=== PATIENT | male | born 1945 | race Caucasian/White ===

== ENCOUNTER 2019-05-31 08:23 | Outpatient (CLI) | payer MEDICARE, SELFPAY | END 2019-05-31 08:24 | disposition home or self-care (01) | LOC: RT 08:23 | PROVIDERS: Family Provider Electrodiagnostic Medicine; PCP Electrodiagnostic Medicine; Visit Provider Internal Medicine Cardiovascular Disease | DX: R06.02 Shortness of breath (principal) | CPT/HCPCS: 94010; 94060; 94726; 94729 ==

== ENCOUNTER 2019-07-09 06:46 | Outpatient (CLI) | payer MEDICARE, SELFPAY ==
--- NOTE | 2019-07-09 06:53 | USCV_ITS ---
Norman Guaman Age: 74 Gender: M : 1945 Exam Date: 07/09/2019 07:01 Ordering Phys: Kathi Grossman MD ([email or web address]) Technologist: Mehran North Exam Location: [facility] [place] Indication: CARDIO MYOPATHY BP: 120 / 70 HR: 74 Rhythm: Sinus Technical Quality: Fair MEASUREMENTS (Male / Female) Normal Values 2D ECHO LV Diastolic Diameter PLAX 3.6 cm 4.2 - 5.9 / 3.9 - 5.3 cm LV Systolic Diameter PLAX 2.1 cm IVS Diastolic Thickness 1.1 cm 0.6 - 1.0 / 0.6 - 0.9 cm IVS Systolic Thickness 1.2 cm LVPW Diastolic Thickness 1.0 cm 0.6 - 1.0 / 0.6 - 0.9 cm LVPW Systolic Thickness 1.2 cm LVOT Diameter 2.1 cm LV Ejection Fraction 2D Teich 72.0 % LV Ejection Fraction MOD 2C 37.9 % LV Ejection Fraction 2C AL 39.1 % LA Diameter 5.4 cm LA Width 5.1 cm LA Height 6.6 cm RA Width 2.7 cm RA Height 6.0 cm Aorta at Sinotubular Diameter 3.0 cm M-MODE LV Diastolic Diameter MM 6.3 cm 4.2 - 5.9 / 3.9 - 5.3 cm LV Systolic Diameter MM 4.7 cm LV Ejection Fraction MM Teich 49.2 % IVS Diastolic Thickness MM 1.1 cm 0.6 - 1.0 / 0.6 - 0.9 cm IVS Systolic Thickness MM 1.6 cm LVPW Diastolic Thickness MM 1.1 cm 0.6 - 1.0 / 0.6 - 0.9 cm LVPW Systolic Thickness MM 2.1 cm RV Diastolic Diameter MM 1.2 cm Aortic Annulus Diameter 3.7 cm LA Ao Ratio MM 1.5 MV E Point Septal Separation 1.7 cm DOPPLER AV Peak Velocity 171.0 cm/s LVOT Peak Velocity 102.0 cm/s AV Area Cont Eq vti 2.1 cm squared AV Area Cont Eq pk 2.0 cm squared MV Area PHT 5.0 cm squared Mitral E to A Ratio 2.7 MV E' Velocity 11.0 cm/s Mitral E to MV E' Ratio 10.5 Mitral E to LV E' Lateral Ratio 8.4 Mitral E to LV E' Septal Ratio 13.9 TR Peak Velocity 149.0 cm/s TR Peak Gradient 8.8 mmHg TV Peak E Velocity 119.0 cm/s Right Atrial Pressure 3.0 mmHg Pulmonary Artery Systolic Pressu 11.9 mmHg FINDINGS Left Ventricle Moderate left ventricular hypertrophy. Diffuse hypokinesia of the left ventricular with an ejection fraction of 39%. Normal LV size. Right Ventricle The right ventricle is normal in size and function. Right Atrium The right atrium is normal in size. Left Atrium Moderately increased left atrial size. Mitral Valve Thickened mitral valve. Mild mitral valve regurgitation. Aortic Valve Thickened aortic valve. Tricuspid Valve No gross abnormalities noted Pulmonic Valve Pulmonic valve not well visualized. Pericardium Normal pericardium without effusion. Aorta Normal ascending aorta dimension. CONCLUSIONS Moderate left ventricular hypertrophy. Diffuse hypokinesia of the left ventricular with an ejection fraction of 39%. Normal LV size. Moderately increased left atrial size. Thickened mitral valve. Mild mitral valve regurgitation. Thickened aortic valve There is no pericardial effusion. There are no intracardiac masses. Compared to the study from 11/11/2016, there is some worsening of the LV systolic function Dr Kathi Grossman MD FAC (Electronically Signed) Final Date: 09 July 2019 13:58 S
== END 2019-07-09 06:47 | disposition home or self-care (01) ==
LOC: US 06:48
PROVIDERS: Family Provider Electrodiagnostic Medicine; PCP Electrodiagnostic Medicine; Visit Provider Internal Medicine Cardiovascular Disease
DX: I43 Cardiomyopathy in diseases classified elsewhere (principal); I34.0 Nonrheumatic mitral (valve) insufficiency
CPT/HCPCS: 93306

== ENCOUNTER → 2019-12-03 07:37 | Outpatient (BNVA) | payer MEDICARE, SELFPAY | PROVIDERS: Family Provider Electrodiagnostic Medicine; PCP Electrodiagnostic Medicine; Visit Provider Urology | DX: N40.1 Benign prostatic hyperplasia with lower urinary tract symptoms (principal); N13.8 Other obstructive and reflux uropathy; N52.8 Other male erectile dysfunction; R97.20 Elevated prostate specific antigen [PSA] | CPT/HCPCS: 81001; 84153 ==

== ENCOUNTER → 2020-01-07 08:10 | Outpatient (BNVA) | payer MEDICARE, SELFPAY | PROVIDERS: Family Provider Electrodiagnostic Medicine; PCP Electrodiagnostic Medicine; Referring Provider Dermatology; Visit Provider Dermatology | DX: Z85.828 Personal history of other malignant neoplasm of skin (principal); D48.5 Neoplasm of uncertain behavior of skin; L91.8 Other hypertrophic disorders of the skin; L90.5 Scar conditions and fibrosis of skin; L57.0 Actinic keratosis; D48.9 Neoplasm of uncertain behavior, unspecified | CPT/HCPCS: 11102; 17000; 17003; 17110; 88304; 99203; 99204 ==

== ENCOUNTER 2020-05-11 12:05 | Outpatient (CLI) | payer MEDICARE, SELFPAY ==
[2020-05-11 12:17] VITALS: BP 128/80; PULSE 85; RESP 17; TEMP 37.5; O2SAT 96
[2020-05-11 12:18] VITALS: BMI 29.7
--- NOTE | 2020-05-11 13:03 | AMB.MCA ---
Patient Information Referred by: Rk Yip Symptom onset date: 05/04/20 COVID 19 common symptoms: positive cough, non-productive cough, fatigue, headache(s) and nasal congestion COVID 19 other sytmptoms: negative chest pressure, chest pain, pleuritic pain, requiring oxygen, requiring more oxygen, respiratory distress, cyanosis, lethargy, confusion, new neurological complaints or other concerning symptoms Severity: moderate Treatment prior to arrival: none [facility] COVID test results: No Data to Display outside results available, scanned Criteria/Plan Inclusion/Exclusion Criteria weight >/= 40kg, + direct test </= 10 days ago and symptom onset </= 10 days ago age >/= 65 not requiring hospitalization, not requiring oxygen (if not chronically on oxygen) and no increase oxygen requirement (if chronically on oxygen) Patient education patient/caregiver received/reviewed fact sheet, Emergency Use Authorization/unapproved drug status discussed with patient/caregiver, alternatives to this treatment discussed with patient/caregiver, risks and benefits of medication reviewed with patient/caregiver, patient/caregiver given opportunity for questions, which were answered and patient/caregiver consents to receiving Monoclonal Antibody Treatment Plan for treatment Meets criteria for Monoclonal Antibody infusion Ordering Monoclonal Antibody infusion for today
[2020-05-11 13:30] VITALS: BP 110/72; PULSE 70; RESP 16; TEMP 37.3; O2SAT 95
[2020-05-11 14:15] VITALS: BP 115/69; PULSE 78; RESP 17; TEMP 37.2; O2SAT 96
[2020-05-11 15:12] VITALS: BP 116/84; PULSE 109; RESP 17; TEMP 37.2; O2SAT 96
--- NOTE | 2020-05-13 14:28 | DCPLANNER ---
Addendum entered by Ingrid Bautista 05/22/20 15:14: staff training and development manager called to check on patient after getting the BAM infusion. staff training and development manager unable to speak with patient at this time. Original Note: staff training and development manager had message that patient received the BAM infusion. staff training and development manager called to check on patient after getting the infusion. Patient stated that he was fine, he did not have time to talk with cyanide case hardener.
== END 2020-05-11 15:18 | disposition home or self-care (01) ==
LOC: OPS 12:07
PROVIDERS: PCP Electrodiagnostic Medicine; Visit Provider Nurse Practitioner
DX: U07.1 COVID-19 (principal)
CPT/HCPCS: 96365

== ENCOUNTER → 2021-01-19 08:18 | Outpatient (BNVA) | payer MEDICARE, SELFPAY | PROVIDERS: PCP Family Medicine; Visit Provider Urology | DX: N40.1 Benign prostatic hyperplasia with lower urinary tract symptoms (principal); N13.8 Other obstructive and reflux uropathy; R97.20 Elevated prostate specific antigen [PSA] | CPT/HCPCS: 81003; 84153 ==

== ENCOUNTER → 2021-08-05 10:31 | Outpatient (BNVA) | payer MEDICARE, SELFPAY | PROVIDERS: PCP Family Medicine; Visit Provider Internal Medicine Cardiovascular Disease | DX: I10 Essential (primary) hypertension (principal); G47.33 Obstructive sleep apnea (adult) (pediatric); I48.11 Longstanding persistent atrial fibrillation; Z79.01 Long term (current) use of anticoagulants; I43 Cardiomyopathy in diseases classified elsewhere; R06.02 Shortness of breath | CPT/HCPCS: 99214 ==

== ENCOUNTER 2021-10-23 08:59 | Emergency (ER) | payer MEDICARE, SELFPAY ==
--- NOTE | 2021-10-23 10:00 | CTR_ITS ---
PROCEDURE INFORMATION: Exam: CT Abdomen And Pelvis Without Contrast Exam date and time: 10/23/2021 10:29 AM Age: 76 years old Clinical indication: Abdominal pain; Flank; Right; Additional info: Flank pain TECHNIQUE: Imaging protocol: Computed tomography of the abdomen and pelvis without contrast. Radiation optimization: All CT scans at this facility use at least one of these dose optimization techniques: automated exposure control; mA and/or kV adjustment per patient size (includes targeted exams where dose is matched to clinical indication); or iterative reconstruction. COMPARISON: CT abdomen pelvis w con* [id number] 10/03/2016 2:06 PM RADIATION DOSE METRICS: Total DLP (mGy-cm): 1802.65 FINDINGS: Lungs: Calcified granuloma in the left lower lobe. Diaphragm: Small hiatal hernia. Liver: Normal. No mass. Gallbladder and bile ducts: Normal. No calcified stones. No ductal dilation. Pancreas: Normal. No ductal dilation. Spleen: Normal. No splenomegaly. Adrenal glands: Right adrenal adenoma measures 2 cm. Low-density thickening of the left adrenal gland. Kidneys and ureters: Mild right hydroureteronephrosis secondary to two stones in the mid right ureter, measuring 2 mm (more proximally) and 4 mm (more distally). Tiny nonobstructing bilateral renal calculi. Stomach and bowel: Colonic diverticulosis without evidence of diverticulitis. No bowel obstruction. Appendix: No evidence of appendicitis. Intraperitoneal space: Unremarkable. No free air. No significant fluid collection. Vasculature: Mild burden of atherosclerotic plaque in the abdominal aorta and branch vessels. No aneurysm. Lymph nodes: Unremarkable. No enlarged lymph nodes. Urinary bladder: There are some linear calcific densities which appear to be either in the wall of the bladder or intraluminal adjacent to the wall. Some of these are in close proximity to the right ureteral orifice. These were not seen in 2017. Reproductive: Prostatomegaly. Bones/joints: Unremarkable. No acute fracture. Soft tissues: Unremarkable. CT/CT abdomen pelvis con [id number] IMPRESSION: 1. Mild right hydroureteronephrosis secondary to 2 stones in the mid right ureter measuring up to 4 mm. 2. There are some linear calcifications along the dependent aspect of the bladder, which may be intramural versus some layering stones. Some of these are in close proximity to the right ureteral orifice. Cystoscopy could further evaluate. COMMENTS: Consistent with the [employer]'s Incidental Findings Committee white paper (J Am Ana Radiol 2017): For any incidental adrenal lesion greater than or equal to 1 cm but less than or equal to 4 cm classified in this report as benign, likely benign, or containing fat (including classification as an adenoma or myelolipoma), no follow-up imaging is recommended per consensus recommendations based on imaging criteria. Further lab evaluation could be pursued if warranted based on clinical findings.
--- NOTE | 2021-10-23 10:00 | ECG_ITS ---
[facility] Test Date: 2021-10-23 Pat Name: Norman Guaman Department: Room: Gender: Male Graphic Design Intern: : 1945 Requested By: Aleksey Garza Order Number: [id number] Fernandez MD: Saul Vallejo M.D. Measurements Intervals [place] Rate: 79 P: MT: QRS: 28 QRSD: 106 T: 91 QT: 387 QTc: 445 Interpretive Statements ATRIAL FIBRILLATION NONSPECIFIC T-WAVE ABNORMALITY Compared to ECG 10/03/2016 12:57:40 Ventricular premature complex(es) no longer present Aberrant conduction of supraventricular beat(s) no longer present T-wave abnormality still present Electronically Signed On 10-23-2021 12:27:37 CDT by Saul Vallejo M.D. [id number]
--- NOTE | 2021-10-23 10:00 | ED_ITS ---
HPI - Abdominal Pain General: Chief Complaint: Abdominal Pain Stated Complaint: urinary pain Time Seen by Provider: 10/23/21 09:55 History of Present Illness: 76-year-old with history of kidney stones presents with right flank pain radiating down the groin. States this started this m orning. Denies any chest pain or shortness of breath. Does report 1 episode of nausea and nonbloody nonbilious emesis. Denies any diarrhea or constipation. Denies any dysuria or urethral discharge. Denies any anterior abdominal pain. Review of Systems Narrative: - CONSTITUTIONAL: Denies weight loss, fever and chills. - HEENT: Denies changes in vision and hearing. - RESPIRATORY: Denies SOB and cough. - CV: Denies palpitations and CP. - GI: As above - : As above. - MSK: Denies myalgia and joint pain. - SKIN: Denies rash and pruritus. - NEUROLOGICAL: Denies headache, weakness, numbness and syncope. - PSYCHIATRIC: Denies suicidal ideation PFSH ED PFSH: Medical History Abnormal TRUS (transrectal ultrasound), prostate Atrial fibrillation BPH w urinary obs/LUTS Cardiomyopathy as manifestation of underlying disease Chronic prostatitis Elevated PSA Erectile dysfunction History of nonmelanoma skin cancer Hypertension Sleep apnea SOB (shortness of breath) Surgical History H/O local excision of skin lesion CANCER REMOVED FROM FACE H/O prostate biopsy History of colonoscopy POLYPECTOMY Family History Father , AT AGE 77 Stroke CAD (coronary artery disease) Mother , AT AGE 96 Cancer OVARIAN Family/Other Diabetes Denies family history of Clotting disorder Dementia Chronic kidney disease (CKD) Suicide Anesthesia complication Bleeding disorder Lung disease Social History Smoking and tobacco status: former smoker Alcohol intake: never Marital status: Current occupational status: retired History of recent travel: No Physical Exam Narrative: EXAM NARRATIVE: - GENERAL: Alert and oriented x 3. No acute distress. Well-nourished. - EYES: EOMI. Anicteric. - HENT: Atraumatic, no C-spine tenderness. Moist mucous membranes. No scleral icterus. No cervical lymphadenopathy. - LUNGS: Clear to auscultation bilaterally. No accessory muscle use. Equal lung sounds bilaterally. No respiratory distress. - CARDIOVASCULAR: Regular rate and rhythm. No murmur. No JVD. - ABDOMEN: Soft, non-tender and non-distended. Right CVA tenderness, no rebound or guarding, negative Queen sign. No palpable masses. - EXTREMITIES: No edema. Non-tender. - SKIN: No rashes or lesions. Warm. - NEUROLOGIC: No meningismus or focal neurological deficits. CN II-XII grossly intact. - PSYCHIATRIC: Cooperative. Appropriate mood and affect. Course Vital Signs: Vital signs: Vital Signs Temperature 97.5 F L 10/23/21 10:04 Pulse Rate 70 10/23/21 12:02 Respiratory Rate 18 10/23/21 13:47 Blood Pressure 114/66 10/23/21 13:47 Pulse Oximetry 95 10/23/21 13:47 MDM - Abdominal Pain Medical Decision Making 76-year-old presents with right flank pain. He is hemodynamically stable afebrile nontoxic-appearing. CT scan concerning for kidney stone. There is also mild UTI on urinalysis however white count is within normal and he is not septic. At this time do not see any sign of septic kidney stone. Prescription for Cipro [place] Zofran and Flomax provided. EKG and troponin do not reveal any sign of acute ischemia or acute abnormality. Remainder of lab work u nremarkable. At this time I believe patient would be safe for discharge and outpatient follow-up. Return precautions provided. Plan was reviewed with the patient who expressed understanding. Questions answered. Patient will follow up with PCP. Patient discharged in stable condition. Lab Data : 10/23/21 11:15 10/23/21 11:15 Labs/Radiology: Radiology Impressions Abdomen/Pelvis CT 10/23/21 10:00 IMPRESSION: 1. Mild right hydroureteronephrosis secondary to 2 stones in the mid right ureter measuring up to 4 mm. 2. There are some linear calcifications along the dependent aspect of the bladder, which may be intramural versus some layering stones. Some of these are in close proximity to the right ureteral orifice. Cystoscopy could further evaluate. COMMENTS: Consistent with the [employer]'s Incidental Findings Committee white paper (J Am Ana Radiol 2017): For any incidental adrenal lesion greater than or equal to 1 cm but less than or equal to 4 cm classified in this report as benign, likely benign, or containing fat (including classification as an adenoma or myelolipoma), no follow-up imaging is recommended per consensus recommendations based on imaging criteria. Further lab evaluation could be pursued if warranted based on clinical findings. Laboratory Results WBC 10.6 10^3/uL (4.0-10.0) H 10/23/21 11:15 RBC 5.13 10^6/uL (4.1-5.3) 10/23/21 11:15 Hgb 16.1 g/dL (11.7-16.6) 10/23/21 11:15 Hct 45.8 % (42.0-52.0) 10/23/21 11:15 MCV 89.3 fl (80-94) 10/23/21 11:15 MCH 31.4 pg (28.0-34.0) 10/23/21 11:15 MCHC 35.2 g/dL (30.0-36.0) 10/23/21 11:15 RDW 12.0 % (12.1-15.1) L 10/23/21 11:15 Plt Count 139 10^3/cmm (130-400) 10/23/21 11:15 MPV 11.6 fL (7.4-10.4) H 10/23/21 11:15 Neut % (Auto) 89.8 % 10/23/21 11:15 Lymph % (Auto) 5.3 % 10/23/21 11:15 [place] % (Auto) 4.3 % 10/23/21 11:15 Eos % (Auto) 0.0 % 10/23/21 11:15 Baso % (Auto) 0.2 % 10/23/21 11:15 Neut # (Auto) 9.49 10^3/uL (1.8-7.7) H 10/23/21 11:15 Lymph # (Auto) 0.6 10^3/uL (0.8-4.8) L 10/23/21 11:15 [place] # (Auto) 0.5 10^3/uL (0.2-0.9) 10/23/21 11:15 Eos # (Auto) 0.0 10^3/uL (0.0-0.8) 10/23/21 11:15 Baso # (Auto) 0.0 10^3/uL (0.0-0.1) 10/23/21 11:15 Nucleated RBC % (auto) 0 % 10/23/21 11:15 Nucleated RBCs # 0.0 /100WBC 10/23/21 11:15 Sodium 140 mmol/L (136-145) 10/23/21 11:15 Potassium 4.6 mmol/L (3.5-5.1) 10/23/21 11:15 Chloride 105 mmol/L (98-107) 10/23/21 11:15 Carbon Dioxide 24 mmol/L (22-29) 10/23/21 11:15 Anion Gap 15.6 (5-19) 10/23/21 11:15 BUN 25 mg/dL (8-23) H 10/23/21 11:15 Creatinine 1.2 mg/dL (0.7-1.2) 10/23/21 11:15 GFR Calculation Not Reportable 10/23/21 11:15 Glucose 115 mg/dL (65-115) 10/23/21 11:15 Calculated Osmolality 295 mOsm/kg (285-295) 10/23/21 11:15 Calcium 9.2 mg/dL (8.5-10.5) 10/23/21 11:15 Total Bilirubin 0.6 mg/dL (0.15-1.2) 10/23/21 11:15 AST 23 U/L (0-40) 10/23/21 11:15 ALT 21 U/L (0-41) 10/23/21 11:15 Alkaline Phosphatase 50 IU/L (40-130) 10/23/21 11:15 Troponin T Baseline 13 ng/L (0-15) 10/23/21 11:15 Total Protein 7.3 g/dL (6.6-8.7) 10/23/21 11:15 Albumin 4.7 g/dL (3.5-5.2) 10/23/21 11:15 Globulin 2.6 g/dL (1.3-4.6) 10/23/21 11:15 Lipase 33 U/L (13-60) 10/23/21 11:15 Urine Color Brown (Yellow) 10/23/21 13:05 Urine Appearance Hazy (CLEAR) A 10/23/21 13:05 Urine pH 5 (5-7) 10/23/21 13:05 Ur Specific [place] 1.020 (1.005-1.030) 10/23/21 13:05 Urine Protein 1+ (Negative) H 10/23/21 13:05 Urine Glucose (UA) Norm (Normal) 10/23/21 13:05 Urine Ketones Negative (Negative) 10/23/21 13:05 Urine Blood 3+ (Negative) H 10/23/21 13:05 Urine Nitrate Negative (Negative) 10/23/21 13:05 Urine Bilirubin Neg (Negative) 10/23/21 13:05 Urine Urobilinogen Norm mg/dL (Negative) 10/23/21 13:05 Ur Leukocyte Esterase Trace (Negative) H 10/23/21 13:05 Urine RBC Too numerous to cnt /hpf (0-2) H 10/23/21 13:05 Urine WBC 10-15 /hpf (0-5) H 10/23/21 13:05 Ur Squamous Epith Cells 5-10 /hpf (0-5) H 10/23/21 13:05 Amorphous Sediment Not Reportable 10/23/21 13:05 Urine Bacteria 2+ /hpf (NONE) H 10/23/21 13:05 EKG Data EKG 1: Other EKG comments: A. fib, rate of 79, T wave inversion in aVL, no sign of acute ischemia or other acute abnormality. Discharge Plan Discharge Condition: Stable Prescriptions: No Action Eliquis 5 mg tablet 5 mg PO BID Qty: 180 2RF spironolactone 25 mg tablet 25 mg PO DAILY Qty: 90 3RF Protonix 20 mg Tablet,Delayed Release (Dr/Ec) 20 mg PO DAILY 0RF lisinopril 20 mg tablet 20 mg PO DAILY 0RF tamsulosin 0.4 mg capsule 0.4 mg PO DAILY 0RF metoprolol tartrate 25 mg tablet 25 mg PO BID 0RF Referrals: Marquez Valiente MD [Primary Care Provider] - Coding Level of Care Code ED Tumbler Operator for Chg Karen
[2021-10-23 10:04] VITALS: BP 159/79; PULSE 78; RESP 18; TEMP 36.4; O2SAT 99
[2021-10-23 11:30] VITALS: RESP 18
[2021-10-23] MEDS: ondansetron 2 mg/ML SDV 2 mL 4 MG IVP (11:30)
[2021-10-23] MEDS: morphine 4 mg/mL SDV 1 mL IVP (11:30)
[2021-10-23 11:46] VITALS: BP 138/69; RESP 18; O2SAT 97
[2021-10-23 11:54] LABS: Basophils % 0.2 %; Hematocrit 45.8 % (42.0-52.0); Hemoglobin 16.1 g/dL (11.7-16.6); Lymphocytes # 0.6 10^3/uL (0.8-4.8); Lymphocytes % 5.3 %; Mean Corpuscular HGB Conc 35.2 g/dL (30.0-36.0); Mean Corpuscular Hemoglobin 31.4 pg (28.0-34.0); Mean Corpuscular Volume 89.3 fl (80-94); Mean Platelet Volume 11.6 fL (7.4-10.4); Monocytes # 0.5 10^3/uL (0.2-0.9); Monocytes % 4.3 %; Neutrophils # 9.49 10^3/uL (1.8-7.7); Neutrophils % 89.8 %; Nucleated Red Blood Cells % 0 %; Platelet Count 139 10^3/cmm (130-400); Red Blood Count 5.13 10^6/uL (4.1-5.3); White Blood Count 10.6 10^3/uL (4.0-10.0)
[2021-10-23 12:02] VITALS: BP 125/80; PULSE 70; O2SAT 99
[2021-10-23 12:02] LABS: Alanine Aminotransferase 21 U/L (0-41); Albumin Level 4.7 g/dL (3.5-5.2); Alkaline Phosphatase 50 IU/L (40-130); Aspartate Amino Transferase 23 U/L (0-40); Blood Urea Nitrogen 25 mg/dL (8-23); Calcium 9.2 mg/dL (8.5-10.5); Carbon Dioxide 24 mmol/L (22-29); Chloride 105 mmol/L (98-107); Globulin 2.6 g/dL (1.3-4.6); Glucose 115 mg/dL (65-115); Lipase 33 U/L (13-60); Osmolality Calculated 295 mOsm/kg (285-295); Sodium 140 mmol/L (136-145); Total Bilirubin 0.6 mg/dL (0.15-1.2); Total Protein 7.3 g/dL (6.6-8.7)
[2021-10-23 12:03] LABS: Troponin(5th) Baseline 13 ng/L (0-15)
[2021-10-23 12:04] LABS: Anion Gap 15.6 (5-19); Potassium 4.6 mmol/L (3.5-5.1)
[2021-10-23] MEDS: sodium chloride 0.9% 500 ML 999 ML IV (13:46)
[2021-10-23 13:47] VITALS: BP 114/66; RESP 18; O2SAT 95
[2021-10-23 13:53] LABS: Add Urine Culture? Yes; Bacteria Urine 2+ /hpf; Bilirubin Urine Neg (Negative); Blood Urine 3+ (Negative); Glucose Urine UA Norm (Normal); Ketones Urine Negative (Negative); Leukocyte Esterase Urine Trace (Negative); Nitrate Urine Negative (Negative); Protein Urine 1+ (Negative); RBC Urine TOO NUMEROUS TO CNT /hpf (0-2); Urine Appearance Hazy (CLEAR); Urine Color Brown (Yellow); Urobilinogen Urine Norm (Negative); pH Urine 5 (5-7)
[2021-10-23 14:44] VITALS: BP 113/72; PULSE 73; RESP 16; O2SAT 98
== END 2021-10-23 14:46 | disposition home or self-care (01) ==
PROVIDERS: Emergency Provider Emergency Medicine; PCP Family Medicine
DX: R10.9 Unspecified abdominal pain (principal); Z79.01 Long term (current) use of anticoagulants; I10 Essential (primary) hypertension; Z87.891 Personal history of nicotine dependence
CPT/HCPCS: 74176; 80053; 81001; 83690; 84484; 85025; 87086; 93005; 96374; 96375; 99284; J2270; J2405; J7040

== ENCOUNTER 2021-10-26 02:07 | Emergency (ER) | payer MEDICARE, SELFPAY ==
[2021-10-26] MEDS: sodium chloride 0.9% 1,000 ML 999 ML IV (02:32)
[2021-10-26 02:38] VITALS: BP 167/98; PULSE 91; RESP 18; TEMP 36.8; O2SAT 97; BMI 30.5
[2021-10-26 02:40] LABS: Basophils % 0.3 %; Eosinophils % 0.1 %; Hematocrit 42.2 % (42.0-52.0); Hemoglobin 14.8 g/dL (11.7-16.6); Lymphocytes # 0.7 10^3/uL (0.8-4.8); Lymphocytes % 5.6 %; Mean Corpuscular HGB Conc 35.1 g/dL (30.0-36.0); Mean Corpuscular Hemoglobin 31.4 pg (28.0-34.0); Mean Corpuscular Volume 89.6 fl (80-94); Monocytes # 1.2 10^3/uL (0.2-0.9); Monocytes % 9.8 %; Neutrophils # 10.19 10^3/uL (1.8-7.7); Neutrophils % 83.8 %; Nucleated Red Blood Cells % 0 %; Platelet Count 129 10^3/cmm (130-400); Red Blood Count 4.71 10^6/uL (4.1-5.3); Red Cell Distribution Width 11.9 % (12.1-15.1); White Blood Count 12.2 10^3/uL (4.0-10.0)
[2021-10-26] MEDS: ondansetron 2 mg/ML SDV 2 mL 4 MG IVP (02:40)
[2021-10-26] MEDS: HYDROmorphone 1 mg/mL INJ 1 mL 0.5 MG IVP ×2 (02:40→03:24)
[2021-10-26 02:41] VITALS: BP 167/98; PULSE 79; RESP 16; O2SAT 92
--- NOTE | 2021-10-26 02:48 | CTR_ITS ---
PROCEDURE INFORMATION: Exam: CT Abdomen And Pelvis Without Contrast Exam date and time: 10/26/2021 3:05 AM Age: 76 years old Clinical indication: Abdominal pain; Flank; Right; Additional info: Flank pain TECHNIQUE: Imaging protocol: Computed tomography of the abdomen and pelvis without contrast. Radiation optimization: All CT scans at this facility use at least one of these dose optimization techniques: automated exposure control; mA and/or kV adjustment per patient size (includes targeted exams where dose is matched to clinical indication); or iterative reconstruction. COMPARISON: CT abdomen pelvis wo con [id number] 10/23/2021 10:29 AM RADIATION DOSE METRICS: Total DLP (mGy-cm): 2252.96 FINDINGS: Lungs: The lung bases are clear. No effusion Diaphragm: Small hiatal hernia. Liver: Normal. No mass. Gallbladder and bile ducts: No wall thickening, pericholecystic fluid or stones. Pancreas: Normal. No ductal dilation. Spleen: Normal. No splenomegaly. Adrenal glands: Normal. No mass. Kidneys and ureters: Multiple nonobstructing bilateral renal stones, largest measures 5 mm.. 3 stones are present in the right ureter, 1 at the ureterovesicular junction , 2 in the distal ureter. The largest stone is 4 mm. Stomach and bowel: Diverticulosis without diverticulitis. Mild amount of formed stool in the colon. Appendix: No evidence of appendicitis. Intraperitoneal space: Unremarkable. No free air. No significant fluid collection. Vasculature: Unremarkable. No abdominal aortic aneurysm. Lymph nodes: Unremarkable. No enlarged lymph nodes. Urinary bladder: Unremarkable as visualized. Reproductive: Moderate prostate hypertrophy. Bones/joints: Unremarkable. No acute fracture. Soft tissues: Unremarkable. CT/CT kidney stone [id number] IMPRESSION: 1. 3 stones are present in the right ureter, 1 at the ureterovesicular junction , 2 in the distal ureter. The largest stone is 4 mm. 2. Small hiatal hernia. 3. Multiple nonobstructing bilateral renal stones, largest measures 5 mm.. 4. Diverticulosis without diverticulitis. 5. Mild constipation.
--- NOTE | 2021-10-26 02:53 | W.ED.ABDPA2 ---
HPI - Abdominal Pain General: Chief Complaint: Abdominal Pain Stated Complaint: abd pain Time Seen by Provider: 10/26/21 02:11 Source: patient Mode of arrival: ambulatory Limitations: no limitations History of Present Illness: 76-year-old male states has been having right-sided flank pain over the last 3 days. He was seen here on the second diagnosed with kidney stone on the right side he states he has had worsening pain today radiating to his groin he rates an 8 out of 10. He states he has had some nausea vomiting is been taking his hydrocodone at times mainly taking ibuprofen. He denies any fevers. Associated Symptoms: Reports nausea and vomiting; Denies chills and fever(s) Review of Systems Const: Denies: fever(s), chills, body aches or change in appetite Eyes: Denies: blurry vision or eye discomfort ENMT: Denies: throat pain or dental pain Card: Denies: chest pain Resp: Denies: dyspnea GI: Reports: nausea and vomiting : Reports: flank pain Musc: Denies: neck pain or back pain Skin/Breast: Denies: rash Neuro: Denies: headache(s) Psych: Denies: depression Domo/Lymph: Denies: easy bruising All/Imm: Denies: urticaria PFSH ED PFSH: Medical History (Updated 10/26/21 @ 03:37 by Genesis Shepard MD) Abnormal TRUS (transrectal ultrasound), prostate Atrial fibrillation BPH w urinary obs/LUTS Cardiomyopathy as manifestation of underlying disease Chronic prostatitis Elevated PSA Erectile dysfunction History of nonmelanoma skin cancer Hypertension Sleep apnea SOB (shortness of breath) Surgical History H/O local excision of skin lesion CANCER REMOVED FROM FACE H/O prostate biopsy History of colonoscopy POLYPECTOMY Family History Father , AT AGE 77 Stroke CAD (coronary artery disease) Mother , AT AGE 96 Cancer OVARIAN Family/Other Diabetes Denies family history of Clotting disorder Dementia Chronic kidney disease (CKD) Suicide Anesthesia complication Bleeding disorder Lung disease Social History Smoking and tobacco status: former smoker Alcohol intake: never Marital status: Current occupational status: retired History of recent travel: No Physical Exam Const: COMMON NORMALS: no acute distress, patient oriented x3 and healthy appearing HENMT: COMMON NORMALS: normocephalic and atraumatic HEAD & SCALP: normocephalic and atraumatic Eye: COMMON NORMALS: Equal, round and reactive pupils present and EOMs intact bilaterally PUPIL: Yes Equal, round and reactive pupils present Neck/C-Spine: COMMON NORMALS: full ROM and supple Chest: COMMONS NORMALS: normal inspection of the chest and normal palpation of entire chest wall Resp: COMMON NORMALS: normal respiratory effort, No retractions, No use of accessory muscles and clear to auscultation bilaterally AUSCULTATION: clear to auscultation bilaterally Cardio: COMMON NORMALS: regular rate, regular rhythm and No murmurs present (Cardio) RATE: regular rate RHYTHM: regular rhythm GI: COMMON NORMALS: Normal to inspection, nondistended, normoactive bowel sounds present, Soft to palpation, non-tender and no masses PALPATION: Yes Soft to palpation Extremity: COMMON NORMALS: normal to inspection and full ROM Neuro: COMMON NORMALS: patient oriented x3, moves all extremities and no focal motor deficits Psych: COMMON NORMALS: mental status grossly normal, Normal thought process present and cooperative THOUGHT PROCESS: Normal thought process present Skin: COMMON NORMALS: no rashes or lesions noted and no wounds GENERAL SKIN EXAM: no rashes or lesions noted Course Vital Signs: Vital signs: Vital Signs Temperature 98.2 F 10/26/21 02:38 Pulse Rate 79 10/26/21 02:41 Respiratory Rate 16 10/26/21 02:41 Blood Pressure 167/98 10/26/21 02:41 Pulse Oximetry 92 10/26/21 02:41 MDM - Abdominal Pain Medical Decision Making Patient presents with a kidney stone actually has 3 they are moving in her much distal than they were 2 days ago. His pain here is improved he has no signs of infection he is stable for discharge we will get him follow-up with Dr. Worley. Lab Data : 10/26/21 02:34 10/26/21 02:34 Labs/Radiology: Radiology Impressions Abdomen/Pelvis CT 10/26/21 02:48 IMPRESSION: 1. 3 stones are present in the right ureter, 1 at the ureterovesicular junction , 2 in the distal ureter. The largest stone is 4 mm. 2. Small hiatal hernia. 3. Multiple nonobstructing bilateral renal stones, largest measures 5 mm.. 4. Diverticulosis without diverticulitis. 5. Mild constipation. Laboratory Results WBC 12.2 10^3/uL (4.0-10.0) H 10/26/21 02:34 RBC 4.71 10^6/uL (4.1-5.3) 10/26/21 02:34 Hgb 14.8 g/dL (11.7-16.6) 10/26/21 02:34 Hct 42.2 % (42.0-52.0) 10/26/21 02:34 MCV 89.6 fl (80-94) 10/26/21 02:34 MCH 31.4 pg (28.0-34.0) 10/26/21 02:34 MCHC 35.1 g/dL (30.0-36.0) 10/26/21 02:34 RDW 11.9 % (12.1-15.1) L 10/26/21 02:34 Plt Count 129 10^3/cmm (130-400) L 10/26/21 02:34 MPV 11.0 fL (7.4-10.4) H 10/26/21 02:34 Neut % (Auto) 83.8 % 10/26/21 02:34 Lymph % (Auto) 5.6 % 10/26/21 02:34 [place] % (Auto) 9.8 % 10/26/21 02:34 Eos % (Auto) 0.1 % 10/26/21 02:34 Baso % (Auto) 0.3 % 10/26/21 02:34 Neut # (Auto) 10.19 10^3/uL (1.8-7.7) H 10/26/21 02:34 Lymph # (Auto) 0.7 10^3/uL (0.8-4.8) L 10/26/21 02:34 [place] # (Auto) 1.2 10^3/uL (0.2-0.9) H 10/26/21 02:34 Eos # (Auto) 0.0 10^3/uL (0.0-0.8) 10/26/21 02:34 Baso # (Auto) 0.0 10^3/uL (0.0-0.1) 10/26/21 02:34 Nucleated RBC % (auto) 0 % 10/26/21 02:34 Nucleated RBCs # 0.0 /100WBC 10/26/21 02:34 Sodium 139 mmol/L (136-145) 10/26/21 02:34 Potassium 4.4 mmol/L (3.5-5.1) 10/26/21 02:34 Chloride 103 mmol/L (98-107) 10/26/21 02:34 Carbon Dioxide 23 mmol/L (22-29) 10/26/21 02:34 Anion Gap 17.4 (5-19) 10/26/21 02:34 BUN 24 mg/dL (8-23) H 10/26/21 02:34 Creatinine 1.3 mg/dL (0.7-1.2) H 10/26/21 02:34 GFR Calculation Not Reportable 10/26/21 02:34 Glucose 125 mg/dL (65-115) H 10/26/21 02:34 Calculated Osmolality 294 mOsm/kg (285-295) 10/26/21 02:34 Calcium 9.2 mg/dL (8.5-10.5) 10/26/21 02:34 Total Bilirubin 1.1 mg/dL (0.15-1.2) 10/26/21 02:34 AST 18 U/L (0-40) 10/26/21 02:34 ALT 15 U/L (0-41) 10/26/21 02:34 Alkaline Phosphatase 47 IU/L (40-130) 10/26/21 02:34 Total Protein 6.7 g/dL (6.6-8.7) 10/26/21 02:34 Albumin 4.3 g/dL (3.5-5.2) 10/26/21 02:34 Globulin 2.4 g/dL (1.3-4.6) 10/26/21 02:34 Lipase 23 U/L (13-60) 10/26/21 02:34 Urine Color Yellow (Yellow) 10/26/21 03:10 Urine Appearance Turbid (CLEAR) 10/26/21 03:10 Urine pH 5 (5-7) 10/26/21 03:10 Ur Specific [place] 1.020 (1.005-1.030) 10/26/21 03:10 Urine Protein Neg (Negative) 10/26/21 03:10 Urine Glucose (UA) Norm (Normal) 10/26/21 03:10 Urine Ketones Negative (Negative) 10/26/21 03:10 Urine Blood 3+ (Negative) H 10/26/21 03:10 Urine Nitrate Negative (Negative) 10/26/21 03:10 Urine Bilirubin Neg (Negative) 10/26/21 03:10 Urine Urobilinogen Norm mg/dL (Negative) 10/26/21 03:10 Ur Leukocyte Esterase Negative (Negative) 10/26/21 03:10 Urine RBC 5-10 /hpf (0-2) H 10/26/21 03:10 Urine WBC 0-4 /hpf (0-5) H 10/26/21 03:10 Ur Squamous Epith Cells 0-4 /hpf (0-5) H 10/26/21 03:10 Amorphous Sediment 1+ /hpf 10/26/21 03:10 Urine Bacteria Trace /hpf (NONE) 10/26/21 03:10 Urine Mucus Trace /hpf 10/26/21 03:10 Discharge Plan Discharge Patient Disposition: Home Clinical Impression: Kidney stone on right side Condition: Stable Prescriptions: New hydrocodone-acetaminophen 5-325 mg tablet 1 tab PO Q6H PRN (Reason: pain) Qty: 14 0RF ondansetron 4 mg tablet,disintegrating 4 mg PO Q6H PRN (Reason: nausea and vomiting) Qty: 14 0RF No Action Eliquis 5 mg tablet 5 mg PO BID Qty: 180 2RF spironolactone 25 mg tablet 25 mg PO DAILY Qty: 90 3RF Protonix 20 mg Tablet,Delayed Release (Dr/Ec) 20 mg PO DAILY 0RF lisinopril 20 mg tablet 20 mg PO DAILY 0RF tamsulosin 0.4 mg capsule 0.4 mg PO DAILY 0RF metoprolol tartrate 25 mg tablet 25 mg PO BID 0RF ciprofloxacin HCl 500 mg tablet 500 mg PO Q8H 7 Days Qty: 21 0RF Discharge Orders: Discharge ED (Routine); Ordered 10/26/21 Ordered By: Genesis Shepard Referrals: Marquez Valiente MD [Primary Care Provider] - Bharat Worley MD [Physician] - 1-3 days Discharge Diet: Advance as tolerated Discharge Activity: Resume usual activity Patient Instructions: Kidney Stones (ED), Opioid Safety Coding Level of Care Code ED Pet Adoption Counselor for Chg Fwd Exam Comprehensive
[2021-10-26 03:22] LABS: Alanine Aminotransferase 15 U/L (0-41); Albumin Level 4.3 g/dL (3.5-5.2); Alkaline Phosphatase 47 IU/L (40-130); Anion Gap 17.4 (5-19); Aspartate Amino Transferase 18 U/L (0-40); Blood Urea Nitrogen 24 mg/dL (8-23); Calcium 9.2 mg/dL (8.5-10.5); Carbon Dioxide 23 mmol/L (22-29); Chloride 103 mmol/L (98-107); Globulin 2.4 g/dL (1.3-4.6); Glucose 125 mg/dL (65-115); Lipase 23 U/L (13-60); Osmolality Calculated 294 mOsm/kg (285-295); Potassium 4.4 mmol/L (3.5-5.1); Sodium 139 mmol/L (136-145); Total Bilirubin 1.1 mg/dL (0.15-1.2); Total Protein 6.7 g/dL (6.6-8.7)
[2021-10-26 03:33] LABS: Add Urine Microscopic? YES; Amorphous Sediment Urine 1+ /hpf; Bacteria Urine TRACE /hpf; Bilirubin Urine Neg (Negative); Blood Urine 3+ (Negative); Glucose Urine UA Norm (Normal); Ketones Urine Negative (Negative); Leukocyte Esterase Urine Negative (Negative); Nitrate Urine Negative (Negative); Protein Urine Neg (Negative); Squamous Epithelial Cell Urine 0-4 /hpf (0-5); Urine Appearance Turbid (CLEAR); Urine Color Yellow (Yellow); Urobilinogen Urine Norm (Negative); WBC Urine 0-4 /hpf (0-5); pH Urine 5 (5-7)
[2021-10-26 03:34] LABS: Add Urine Culture? No; Mucus Urine TRACE /hpf
[2021-10-26] MEDS: ketorolac 30 mg/mL INJ 10 MG IVP (03:43)
[2021-10-26 04:11] VITALS: BP 122/66; PULSE 76; RESP 16; O2SAT 94
[2021-10-26 04:14] VITALS: BP 122/66; PULSE 76; RESP 16; O2SAT 94
--- NOTE | 2021-10-26 07:32 | DCPLANNER ---
Addendum entered by Ingrid Bautista 11/15/21 13:58: Patient had a follow up appointment scheduled for 11.04.[address] Worley - patient did attend appointment. Original Note: discovery manager had message to schedule a follow up appointment for patient with urology. discovery manager sent patients information to the front office staff at urology. Patients information will be printed and reviewed. Clinic will call patient with appointment information.
== END 2021-10-26 04:16 | disposition home or self-care (01) ==
PROVIDERS: Emergency Provider Emergency Medicine; PCP Family Medicine
DX: N20.0 Calculus of kidney (principal); R11.2 Nausea with vomiting, unspecified
CPT/HCPCS: 74176; 80053; 81001; 83690; 85025; 96374; 96375; 96376; 99284; J1170; J1885; J2405; J7030

== ENCOUNTER 2021-10-27 11:52 | Emergency (ER) | payer MEDICARE, SELFPAY ==
[2021-10-27] VITALS (38 sets, daily range): BP systolic 142–152; BP diastolic 77–81; PULSE 74–97; RESP 2–21; TEMP 36.1–36.8; O2SAT 91–99; BMI 29.7
--- NOTE | 2021-10-27 12:53 | ED_ITS ---
HPI - Male Genitourinary General: Chief complaint: Urogenital-Male Stated complaint: back pain, abd pain, can't urinate Time Seen by Provider: 10/27/21 12:35 Source: patient Mode of arrival: ambulatory Limitations: no limitations History of Present Illness: Patient is a nice 76-year-old male who presents to ED today with a complaint of acute urinary retention. Patient was initially seen at our facility on 10/23 and diagnosed with right ureter stones as well as a UTI. He was placed on antibiotics, pain/nausea meds, and flomax and discharged home. Patient was subsequently seen 2 days later for right flank and abdominal pains. CT scan showed 3 ureter stones measuring 2 to 4 mm. Patient's urine c ulture from his initial visit was negative and thus he was instructed to DC antibiotics. He states yesterday evening he began having trouble urinating but states he could dribble small amounts . He does have a history of BPH. He states overnight he has become increasingly uncomfortable and is now complaining of abdominal distention significant discomfort. He is still able to void very small amounts (a few mLs at a time). He has not noticed any hematuria. MD Complaint: other (urinary retention, ureter stones) Onset (ago): hour(s) Duration: constant Severity: severe Severity scale (1-10): 10 Exacerbating factors: none Associated symptoms: Deny hematuria, nausea or vomiting Review of Systems Const: Denies: fever(s), chills, body aches, fatigue or malaise Card: Denies: chest pain Resp: Denies: dyspnea GI: Reports: abdominal pain; Denies: nausea, vomiting or diarrhea : Reports: difficulty urinating and other (urinary retention); Denies: flank pain, hematuria, genital pain or testicular pain Musc: Denies: back pain Skin/Breast: Denies: rash Neuro: Denies: headache(s) PFS ED PFSH: Medical History (Updated 10/27/21 @ 16:51 by BERHANE Herron) Abnormal TRUS (transrectal ultrasound), prostate Atrial fibrillation BPH w urinary obs/LUTS Cardiomyopathy as manifestation of underlying disease Chronic prostatitis Elevated PSA Erectile dysfunction History of nonmelanoma skin cancer Hypertension Sleep apnea SOB (shortness of breath) Surgical History H/O local excision of skin lesion CANCER REMOVED FROM FACE H/O prostate biopsy History of colonoscopy POLYPECTOMY Family History Father , AT AGE 77 Stroke CAD (coronary artery disease) Mother , AT AGE 96 Cancer OVARIAN Family/Other Diabetes Denies family history of Clotting disorder Dementia Chronic kidney disease (CKD) Suicide Anesthesia complication Bleeding disorder Lung disease Social History Smoking and tobacco status: former smoker Alcohol intake: never Marital status: Current occupational status: retired History of recent travel: No Physical Exam Const: COMMON NORMALS: average body habitus, patient oriented x3, no limitations, healthy appearing, alert and well nourished GENERAL APPEARANCE: cooperative and in distress (appears very uncomfortable at this time) HENMT: COMMON NORMALS: normocephalic and atraumatic HEAD & SCALP: normal to inspection, normocephalic and atraumatic Resp: COMMON NORMALS: normal respiratory effort and clear to auscultation bilaterally AUSCULTATION: clear to auscultation bilaterally Cardio: COMMON NORMALS: regular rate and regular rhythm RATE: regular rate RHYTHM: regular rhythm GI: COMMON NORMALS: No hepatosplenomegaly present INSPECTION: Yes other (suprapubic distention) AUSCULTATION: Yes normoactive bowel sounds PALPATION: Yes No hepatosplenomegaly present and Yes Other GI palpation findings present (distended bladder) : COMMON NORMALS: Yes no CVA tenderness BLADDER/KIDNEY EXAM: Yes no CVA tenderness Back/Pelvis: COMMON NORMALS: no CVA tenderness Extremity: GENERAL: Yes normal exam except as noted Neuro: MARK COMA SCALE: document GCS findings Mark coma scale eye opening: Spontaneous Mark coma scale verbal response: Orientated Mark coma scale motor response: Obey commands Mark coma scale total score: 15 COMMON NORMALS: patient oriented x3, moves all extremities, no focal motor deficits and no sensory deficits noted SENSORIUM/ORIENTATION: Yes alert Skin: COMMON NORMALS: no rashes or lesions noted GENERAL SKIN EXAM: no rashes or lesions noted Course ED course: Starkey placed immediately after my examination and over 1000ml drained. Patient re-assessed and feels significantly better. Consultations: Consultation #1: Dr. Worley-will see patient in office tomorrow Consultation #2: Dr. Garza spoke to Dr. Grossman who stated EKGs were consistent with a rate dependent bundle block and there is no need for admission for this. Vital Signs: Vital signs: Vital Signs Temperature 96.9 F L 10/27/21 16:50 Pulse Rate 75 10/27/21 16:50 Respiratory Rate 18 10/27/21 16:50 Blood Pressure 142/81 10/27/21 16:50 Pulse Oximetry 92 10/27/21 16:50 MDM - Male Medical Decision Making Patient is a very nice 76-year-old male here for acute urinary retention. He has been seen twice here over the past few days for right ureter stones. Patient has multiple right ureter stones measuring anywhere from 2 to 4 mm. Patient does have a history of BPH. He has been using hydrocodone. Certainly both of these could be etiologies for his acute urinary retention. He was extremely uncomfortable upon initial presentation. Starkey was subsequently placed and over 1000 mL of urine were drained. Patient feels substantially better. Blood work showing a normal white count. He does have a minor elevations to his BUN/Cr 25/1.8 from his obstructive uropathy. I would anticipate this improving soon now that we have alleviated the obstruction. He was given fluids here. Of note during his stay his daughter was noticing some couplet PVCs on the monitor that she was concerned about (looking at previous documentation he did have a holter monitor in 2019 showing these). EKG was obtained which showed a LBBB. There was an EKG on file from one of his previous visits 4 days ago and LBBB was not present then. Spoke to Dr. Garza who stated patient needed to be admitted for new onset LBBB. Patient is not complaining of chest pain. I did run case by Dr. Pathak who wanted us to consult with Dr. Grossman prior to admission and he didn't feel patient necessarily needed to be an admit but would be willing if Dr. Grossman recommended. Dr. Garza spoke to Dr. Grossman (EKGs were faxed to him for review) who stated patient had a rate depended bundle block and there was nothing concerning at this time that would require admission. Spoke to Dr. Worley in regards to the ureter stones, urinary retention, and minor elevations to BUN/Cr. He feels comfortable allowing patient home from an urology standpoint. He will see him in office tomorrow. Did recommend increasing his flomax to BID. He has pain/nausea meds at home. Lab Data : 10/27/21 13:42 10/27/21 13:42 Radiology Impressions KUB X-Ray 10/27/21 14:25 Impression: 1. Renal calcifications obscured by colon gas and fecal material. 2. Several pelvic calcifications and 2 on the right may be in the distal right ureter. Renal Ultrasound 10/27/21 14:33 IMPRESSION: 1. Mild RIGHT hydronephrosis. 2. Negative LEFT kidney. Chest X-Ray 10/27/21 15:57 IMPRESSION: No acute infiltrate. No significant change from 10/03/2016 Laboratory Results WBC 9.7 10^3/uL (4.0-10.0) 10/27/21 13:42 RBC 4.26 10^6/uL (4.1-5.3) 10/27/21 13:42 Hgb 13.5 g/dL (11.7-16.6) 10/27/21 13:42 Hct 37.7 % (42.0-52.0) L 10/27/21 13:42 MCV 88.5 fl (80-94) 10/27/21 13:42 MCH 31.7 pg (28.0-34.0) 10/27/21 13:42 MCHC 35.8 g/dL (30.0-36.0) 10/27/21 13:42 RDW 11.9 % (12.1-15.1) L 10/27/21 13:42 Plt Count 119 10^3/cmm (130-400) L 10/27/21 13:42 MPV 10.9 fL (7.4-10.4) H 10/27/21 13:42 Neut % (Auto) 87.8 % 10/27/21 13:42 Lymph % (Auto) 3.4 % 10/27/21 13:42 [place] % (Auto) 8.4 % 10/27/21 13:42 Eos % (Auto) 0.0 % 10/27/21 13:42 Baso % (Auto) 0.2 % 10/27/21 13:42 Neut # (Auto) 8.47 10^3/uL (1.8-7.7) H 10/27/21 13:42 Lymph # (Auto) 0.3 10^3/uL (0.8-4.8) L 10/27/21 13:42 [place] # (Auto) 0.8 10^3/uL (0.2-0.9) 10/27/21 13:42 Eos # (Auto) 0.0 10^3/uL (0.0-0.8) 10/27/21 13:42 Baso # (Auto) 0.0 10^3/uL (0.0-0.1) 10/27/21 13:42 Nucleated RBC % (auto) 0 % 10/27/21 13:42 Nucleated RBCs # 0.0 /100WBC 10/27/21 13:42 Sodium 135 mmol/L (136-145) L 10/27/21 13:42 Potassium 4.2 mmol/L (3.5-5.1) 10/27/21 13:42 Chloride 100 mmol/L (98-107) 10/27/21 13:42 Carbon Dioxide 22 mmol/L (22-29) 10/27/21 13:42 Anion Gap 17.2 (5-19) 10/27/21 13:42 BUN 25 mg/dL (8-23) H 10/27/21 13:42 Creatinine 1.8 mg/dL (0.7-1.2) H 10/27/21 13:42 GFR Calculation Not Reportable 10/27/21 13:42 Glucose 105 mg/dL (65-115) 10/27/21 13:42 Calculated Osmolality 285 mOsm/kg (285-295) 10/27/21 13:42 Calcium 8.9 mg/dL (8.5-10.5) 10/27/21 13:42 Total Bilirubin 1.3 mg/dL (0.15-1.2) H 10/27/21 13:42 AST 17 U/L (0-40) 10/27/21 13:42 ALT 12 U/L (0-41) 10/27/21 13:42 Alkaline Phosphatase 47 IU/L (40-130) 10/27/21 13:42 Troponin T Baseline 12 ng/L (0-15) 10/27/21 13:42 Troponin T 120 Minute 10.64 ng/L (0-15) 10/27/21 16:35 Delta Troponin T 1.36 ABS# (0-10) 10/27/21 16:35 Total Protein 6.6 g/dL (6.6-8.7) 10/27/21 13:42 Albumin 4.0 g/dL (3.5-5.2) 10/27/21 13:42 Globulin 2.6 g/dL (1.3-4.6) 10/27/21 13:42 Urine Color Yellow (Yellow) 10/27/21 14:15 Urine Appearance Clear (CLEAR) 10/27/21 14:15 Urine pH 5 (5-7) 10/27/21 14:15 Ur Specific [place] 1.010 (1.005-1.030) 10/27/21 14:15 Urine Protein Neg (Negative) 10/27/21 14:15 Urine Glucose (UA) Norm (Normal) 10/27/21 14:15 Urine Ketones Negative (Negative) 10/27/21 14:15 Urine Blood 3+ (Negative) H 10/27/21 14:15 Urine Nitrate Negative (Negative) 10/27/21 14:15 Urine Bilirubin Neg (Negative) 10/27/21 14:15 Urine Urobilinogen Norm mg/dL (Negative) 10/27/21 14:15 Ur Leukocyte Esterase Negative (Negative) 10/27/21 14:15 Urine RBC 10-15 /hpf (0-2) H 10/27/21 14:15 Urine WBC 5-10 /hpf (0-5) H 10/27/21 14:15 Ur Squamous Epith Cells 0-4 /hpf (0-5) H 10/27/21 14:15 Ur Transition Epith Cell 0-4 /hpf 10/27/21 14:15 Amorphous Sediment Not Reportable 10/27/21 14:15 Urine Bacteria 1+ /hpf (NONE) H 10/27/21 14:15 Fine Granular Casts 0-4 /lpf H 10/27/21 14:15 Discharge Plan Discharge Patient Disposition: Home Clinical Impression: Obstructive uropathy, Rate-dependent bundle branch block, Calculus of distal right ureter Condition: Stable Prescriptions: No Action Eliquis 5 mg tablet 5 mg PO BID Qty: 180 2RF spironolactone 25 mg tablet 25 mg PO DAILY Qty: 90 3RF pantoprazole [Protonix] 20 mg Tablet,Delayed Release (Dr/Ec) 20 mg PO DAILY 0RF lisinopril 20 mg tablet 20 mg PO DAILY 0RF tamsulosin 0.4 mg capsule 0.4 mg PO DAILY 0RF metoprolol tartrate 25 mg tablet 25 mg PO BID 0RF ciprofloxacin HCl 500 mg tablet 500 mg PO Q8H 7 Days Qty: 21 0RF hydrocodone-acetaminophen 5-325 mg tablet 1 tab PO Q6H PRN (Reason: pain) Qty: 14 0RF ondansetron 4 mg tablet,disintegrating 4 mg PO Q6H PRN (Reason: nausea and vomiting) Qty: 14 0RF Discharge Orders: Discharge ED (Routine); Ordered 10/27/21 Ordered By: Nohemy Padron Referrals: Marquez Valiente MD [Primary Care Provider] - Bharat Worley MD [Physician] - Activity Restrictions/Additional Instructions: As we discussed you have an appointment with Dr. Worley tomorrow. Please check into the main office building at 10:00AM to registration. You will have an x-ray and then immediately proceed to Dr. Worley's office for appointment. We will also place him case management referral for him to follow-up with his medical diagnostic radiographer Dr. Grossman. Coding Level of Care Code ED Traffic Personnel Supervisor for Emilio Fwd Exam Comprehensive
[2021-10-27 13:49] LABS: Basophils % 0.2 %; Hematocrit 37.7 % (42.0-52.0); Hemoglobin 13.5 g/dL (11.7-16.6); Lymphocytes # 0.3 10^3/uL (0.8-4.8); Lymphocytes % 3.4 %; Mean Corpuscular HGB Conc 35.8 g/dL (30.0-36.0); Mean Corpuscular Hemoglobin 31.7 pg (28.0-34.0); Mean Corpuscular Volume 88.5 fl (80-94); Mean Platelet Volume 10.9 fL (7.4-10.4); Monocytes # 0.8 10^3/uL (0.2-0.9); Monocytes % 8.4 %; Neutrophils # 8.47 10^3/uL (1.8-7.7); Neutrophils % 87.8 %; Nucleated Red Blood Cells % 0 %; Platelet Count 119 10^3/cmm (130-400); Red Blood Count 4.26 10^6/uL (4.1-5.3); Red Cell Distribution Width 11.9 % (12.1-15.1); White Blood Count 9.7 10^3/uL (4.0-10.0)
[2021-10-27 14:09] LABS: Alanine Aminotransferase 12 U/L (0-41); Alkaline Phosphatase 47 IU/L (40-130); Anion Gap 17.2 (5-19); Aspartate Amino Transferase 17 U/L (0-40); Blood Urea Nitrogen 25 mg/dL (8-23); Calcium 8.9 mg/dL (8.5-10.5); Carbon Dioxide 22 mmol/L (22-29); Chloride 100 mmol/L (98-107); Globulin 2.6 g/dL (1.3-4.6); Glucose 105 mg/dL (65-115); Osmolality Calculated 285 mOsm/kg (285-295); Potassium 4.2 mmol/L (3.5-5.1); Sodium 135 mmol/L (136-145); Total Bilirubin 1.3 mg/dL (0.15-1.2); Total Protein 6.6 g/dL (6.6-8.7)
--- NOTE | 2021-10-27 14:25 | XR_ITS ---
WS: [id number] KUB, AP view, 10/27/2021 Clinical Data: R ureter stones Comparison: CT abdomen pelvis, 10/26/2021. Findings: No abnormal intraabdominal masses or calcifications are seen. The stones noted on the CT abdomen pelv is are not visible. There is no dilatated small bowel or evidence of obstruction. There are phleboliths and vascular calcifications in the true pelvis. Two of the right pelvic calcifications could be in the distal right ureter. XR/XR KUB [id number] Impression: 1. Renal calcifications obscured by colon gas and fecal material. 2. Several pelvic calcifications and 2 on the right may be in the distal right ureter.
[2021-10-27] MEDS: sodium chloride 0.9% 1,000 ML 999 ML IV (14:26)
--- NOTE | 2021-10-27 14:33 | US_ITS ---
WS: [id number] RENAL ULTRASOUND HISTORY: urinary retention, ureter stones COMPARISON: None available. TECHNIQUE: 2-D and color Doppler imaging of the kidney submitted. Right kidney: 11.9 cm x 6.1 cm x 6.3 cm. Mild hydronephrosis and dilatation of the RIGHT renal pelvis. Nonobstructing calcification mid renal cortex measures 8 mm. Left kidney: 12.0 cm x 5.2 cm x 5.1 cm. Normal echogenicity with no hydronephrosis or mass. Aorta: Normal. Urinary Bladder: Nondistended urinary bladder. Starkey catheter present. US/US renal BI* [id number] IMPRESSION: 1. Mild RIGHT hydronephrosis. 2. Negative LEFT kidney.
[2021-10-27 14:35] LABS: Urine Appearance Clear (CLEAR); Urine Color Yellow (Yellow)
[2021-10-27 14:36] LABS: Add Urine Culture? Yes; Add Urine Microscopic? YES; Bacteria Urine 1+ /hpf; Bilirubin Urine Neg (Negative); Blood Urine 3+ (Negative); Fine Granular Casts Urine 0-4 /lpf; Glucose Urine UA Norm (Normal); Ketones Urine Negative (Negative); Leukocyte Esterase Urine Negative (Negative); Nitrate Urine Negative (Negative); Protein Urine Neg (Negative); Squamous Epithelial Cell Urine 0-4 /hpf (0-5); Transitional Epi Cells Urine 0-4 /hpf; Urobilinogen Urine Norm (Negative); pH Urine 5 (5-7)
--- NOTE | 2021-10-27 14:41 | PC.NURSE ---
After getting moreno catheter placed and voiding over 1000mL, patient is no longer in pain and no longer nauseas.
--- NOTE | 2021-10-27 15:17 | ECG_ITS ---
[facility] Test Date: 2021-10-27 Pat Name: Norman Guaman Department: Room: Gender: Male Steam And Power Superintendent: : 1945 Requested By: Nohemy Padron Order Number: [id number] Fernandez MD: Tate Ball M.D. Measurements Intervals [place] Rate: 98 P: [place]: QRS: -3 QRSD: 162 T: 220 QT: 405 QTc: 517 Interpretive Statements ATRIAL FIBRILLATION LEFT BUNDLE BRANCH BLOCK [120+ ms QRS DURATION, 80+ ms Q/S IN V1/V2, 85+ ms R IN I/aVL/V5/V6] Compared to ECG 10/23/2021 11:29:31 Left bundle-branch block now present T-wave abnormality no longer present Electronically Signed On 10-27-2021 17:59:00 CDT by Tate Ball M.D. [id number]
--- NOTE | 2021-10-27 15:45 | PC.NURSE ---
Patient is having frequent PVCs with occaisonal couplets and triplets. Nurse Alerted PA and received orders for an EKG. EKG completed and given to provider for review.
--- NOTE | 2021-10-27 15:57 | ECG_ITS ---
[facility] Test Date: 2021-10-27 Pat Name: Norman Guaman Department: Room: Gender: Male Enterprise Systems Architect: : 1945 Requested By: Nohemy Padron Order Number: [id number] Fernandez MD: Tate Ball M.D. Measurements Intervals [place] Rate: 88 P: [place]: QRS: 32 QRSD: 108 T: 75 QT: 333 QTc: 404 Interpretive Statements ATRIAL FIBRILLATION WITH ABERRANT CONDUCTION OR VENTRICULAR PREMATURE COMPLEXES NONSPECIFIC T-WAVE ABNORMALITY Compared to ECG 10/27/2021 15:31:01 Ventricular premature complex(es) now present Aberrant conduction of supraventricular beat(s) now present T-wave abnormality now present Left bundle-branch block no longer present Electronically Signed On 10-27-2021 17:54:39 CDT by Tate Ball M.D. [id number]
--- NOTE | 2021-10-27 15:57 | XRR_ITS ---
PROCEDURE INFORMATION: Exam: XR Chest Exam date and time: 10/27/2021 4:48 PM Age: 76 years old Clinical indication: Other: Trouble urinating; Additional info: New onset lbbb TECHNIQUE: Imaging protocol: Radiologic exam of the chest. Views: 1 view. COMPARISON: CR Chest 1 [place] [id number] 10/03/2016 1:40 PM FINDINGS: Lungs: Visualized portions of the lungs are clear. Pleural spaces: Unremarkable. No pleural effusion. No pneumothorax. Heart/Mediastinum: Heart is upper limits normal in size. Bones/joints: There are degenerative changes in thoracic spine. XR/XR chest 1V portable [id number] IMPRESSION: No acute infiltrate. No significant change from 10/03/2016
[2021-10-27 16:31] LABS: Troponin(5th) Baseline 12 ng/L (0-15)
--- NOTE | 2021-10-27 17:09 | PC.NURSE ---
Discharged patient. IV removed. Farias left intact. Informed of black appointment urmila and hoa elena contact him in the future for cardiology. No new medications. Signature form signed.
[2021-10-27 17:11] LABS: Troponin 5 2HR 10.64 ng/L (0-15)
[2021-10-27 17:57] LABS: Troponin 5 2HR Delta 1.36 ABS# (0-10)
--- NOTE | 2021-10-29 06:46 | DCPLANNER ---
late entry - case manager specialist was asked to schedule a follow up appointment for patient with urology. utilization manager called the urology clinic, spoke with Marilee, gave clinic patients information, and explained that per Dr. Worley, he would see patient tomorrow, 10.28.21, if patient was not admitted to hospital. utilization manager was told that patients information would be printed and reviewed. Clinic will call patient with appointment information.
--- NOTE | 2021-10-29 06:48 | DCPLANNER ---
Addendum entered by Ingrid Bautista 12/17/21 11:02: Patient had a follow up appointment scheduled for 12.16.21 with [facility] - appointment was rescheduled. Addendum entered by Ingrid Bautista 11/05/21 10:37: Patient has a follow up appointment scheduled for November at 11:[address] Grossman at [facility]. Clinic will call patient with appointment information. Original Note: intermediate manager had message to schedule a follow up appointment for patient with cardiology. intermediate manager sent patients information to the front office staff at [facility]. Patients information will be printed and reviewed. Clinic will call patient with appointment information.
== END 2021-10-27 17:10 | disposition home or self-care (01) ==
PROVIDERS: Emergency Provider Physician Assistant; PCP Family Medicine
DX: N13.9 Obstructive and reflux uropathy, unspecified (principal); I45.4 Nonspecific intraventricular block; N20.1 Calculus of ureter; N40.1 Benign prostatic hyperplasia with lower urinary tract symptoms; N13.8 Other obstructive and reflux uropathy
CPT/HCPCS: 51702; 71045; 74018; 76770; 80053; 81001; 84484; 85025; 87086; 93005; 96361; 96374; 96375; 99285; J7030

== ENCOUNTER 2021-10-28 09:51 | Outpatient (CLI) | payer MEDICARE, SELFPAY | END 2021-10-28 09:52 | disposition home or self-care (01) | PROVIDERS: PCP Family Medicine; Visit Provider Urology | DX: N20.0 Calculus of kidney (principal) | CPT/HCPCS: G0463; 74018; 99213 ==

== ENCOUNTER 2021-11-04 11:52 | Outpatient (CLI) | payer MEDICARE, SELFPAY ==
--- NOTE | 2021-11-04 11:45 | XR_ITS ---
WS: [id number] KUB, AP view, 11/04/2021 Clinical Data: CALCULUS OF KIDNEY Comparison: KUB, 10/28/2021. Findings: No abnormal intraabdominal masses are seen. There is no dilatated small bowel or evidence of obstruct ion. There are calcifications overlying both kidneys. There are vascular calcifications. XR/XR KUB [id number] Impression: Probable bilateral renal calcifications.
== END 2021-11-04 11:53 | disposition home or self-care (01) ==
PROVIDERS: PCP Family Medicine; Visit Provider Urology
DX: N20.0 Calculus of kidney (principal)
CPT/HCPCS: 52000; 74018; 99214

== ENCOUNTER → 2021-12-03 09:41 | Outpatient (BNVA) | payer MEDICARE, SELFPAY | PROVIDERS: PCP Family Medicine; Visit Provider Urology | DX: R33.9 Retention of urine, unspecified (principal); N21.0 Calculus in bladder; N40.1 Benign prostatic hyperplasia with lower urinary tract symptoms; N13.8 Other obstructive and reflux uropathy | CPT/HCPCS: 81003; 99213 ==

== ENCOUNTER → 2022-01-25 14:12 | Outpatient (BNVA) | payer MEDICARE, SELFPAY | PROVIDERS: PCP Family Medicine; Visit Provider Physician Assistant | DX: M25.552 Pain in left hip (principal); M51.37 Other intervertebral disc degeneration, lumbosacral region; M16.12 Unilateral primary osteoarthritis, left hip; M48.061 Spinal stenosis, lumbar region without neurogenic claudication | CPT/HCPCS: 72110; 73502; 99203; 99204 ==

== ENCOUNTER 2022-02-01 13:26 | Outpatient (CLI) | payer MEDICARE, SELFPAY ==
--- NOTE | 2022-02-01 13:38 | XR_ITS ---
WS: [id number] KUB, AP view, 02/01/2022 Clinical Data: STONES Comparison: KUB, 11/04/2021. Findings: No abnormal intraabdominal masses are seen. There is no dilatated small bowel or evidence of obstruct ion. There are calcifications overlying both kidneys. Vascular calcifications are present. XR/XR KUB [id number] Impression: Probable small bilateral renal calcifications.
== END 2022-02-01 13:27 | disposition home or self-care (01) ==
LOC: RAD 13:28
PROVIDERS: PCP Family Medicine; Visit Provider Urology
DX: N21.0 Calculus in bladder (principal); N40.1 Benign prostatic hyperplasia with lower urinary tract symptoms; N13.8 Other obstructive and reflux uropathy; R97.20 Elevated prostate specific antigen [PSA]; R33.9 Retention of urine, unspecified; N52.8 Other male erectile dysfunction
CPT/HCPCS: 51741; 51798; 74018; 81003; 99213

== ENCOUNTER → 2022-02-23 14:40 | Outpatient (BNVA) | payer MEDICARE, SELFPAY | PROVIDERS: PCP Family Medicine; Visit Provider Internal Medicine Cardiovascular Disease | DX: R06.02 Shortness of breath (principal); I43 Cardiomyopathy in diseases classified elsewhere; I10 Essential (primary) hypertension; I48.11 Longstanding persistent atrial fibrillation; G47.33 Obstructive sleep apnea (adult) (pediatric); Z79.01 Long term (current) use of anticoagulants | CPT/HCPCS: 36415; 80048; 83880; 99214 ==

== ENCOUNTER 2022-04-20 08:34 | Outpatient (CLI) | payer MEDICARE, SELFPAY ==
--- NOTE | 2022-04-20 08:45 | USCV_ITS ---
Norman Guaman Age: 77 Gender: M : 1945 Exam Date: 04/20/2022 08:57 Ordering Phys: Kathi Grossman MD ([email or web address]) Technologist: Anaid Smith Exam Location: [facility] – [place] Indication: =Low EF BP: / HR: 81 Rhythm: Atrial fibrillation Technical Quality: Adequate MEASUREMENTS (Male / Female) Normal Values 2D ECHO LV Diastolic Diameter PLAX 4.0 cm 4.2 - 5.9 / 3.9 - 5.3 cm LV Systolic Diameter PLAX 2.8 cm IVS Diastolic Thickness 1.3 cm 0.6 - 1.0 / 0.6 - 0.9 cm IVS Systolic Thickness 1.7 cm LVPW Diastolic Thickness 1.5 cm 0.6 - 1.0 / 0.6 - 0.9 cm LVPW Systolic Thickness 1.5 cm LVOT Diameter 2.0 cm LV Ejection Fraction 2D Teich 58.0 % LV Ejection Fraction MOD 2C 64.6 % LV Ejection Fraction 2C AL 67.6 % LA Diameter 5.1 cm LA Width 5.5 cm LA Height 7.0 cm RA Width 4.0 cm RA Height 5.9 cm Aorta at Sinotubular Diameter 2.9 cm IVC Diameter 2.1 cm M-MODE Aortic Annulus Diameter 3.6 cm LA Ao Ratio MM 1.5 MV E Point Septal Separation 0.7 cm DOPPLER AV Peak Velocity 112.0 cm/s LVOT Peak Velocity 77.0 cm/s AV Area Cont Eq vti 2.3 cm squared AV Area Cont Eq pk 2.2 cm squared MV Area PHT 3.9 cm squared MV E' Velocity 53.0 cm/s Mitral E to MV E' Ratio 9.3 Mitral E to LV E' Lateral Ratio 10.1 Mitral E to LV E' Septal Ratio 8.7 TR Peak Velocity 158.4 cm/s TR Peak Gradient 10.0 mmHg TR Mean Velocity 108.8 cm/s TR Mean Gradient 5.5 mmHg TR Velocity Time Integral 35.0 cm TV Peak E Velocity 70.0 cm/s Right Atrial Pressure 3.0 mmHg Pulmonary Artery Systolic Pressu 13.0 mmHg PV Peak Velocity 74.0 cm/s RV Acceleration Time 0.2 s RV Ejection Time 0.3 s RV AcT/ET 0.6 FINDINGS Left Ventricle Normal left ventricular size and systolic function, EF 59 %. Mild to moderate left ventricular hypertrophy. No regional wall motion abnormalities. Right Ventricle The right ventricle is normal in size and function. Right Atrium Mildly increased right atrial size. Left Atrium Moderately increased left atrial size. Mitral Valve Thickened mitral valve. Trace mitral valve regurgitation. Aortic Valve Thickened aortic valve. Tricuspid Valve Trace tricuspid valve regurgitation. Pulmonic Valve Mild pulmonary valve regurgitation. Pericardium Normal pericardium without effusion. Aorta Normal ascending aorta dimension. IVC The inferior vena cava appears normal. CONCLUSIONS Normal left ventricular size and systolic function, EF 59 %. Mild to moderate left ventricular hypertrophy. No regional wall motion abnormalities. Moderately increased left atrial size. Mildly increased right atrial size. Thickened aortic valve. Trace tricuspid valve regurgitation. Mild pulmonary valve regurgitation. Estimated pulmonary artery peak systolic pressure was within normal limits There is no pericardial effusion. There are no intracardiac masses. Compared to the study from 07/09/2019, there is significant improvement of the LV ejection fraction Dr Kathi Grossman MD FAC (Electronically Signed) Final Date: 20 April 2022 15:26 S
== END 2022-04-20 08:35 | disposition home or self-care (01) ==
PROVIDERS: PCP Family Medicine; Visit Provider Internal Medicine Cardiovascular Disease
DX: I50.9 Heart failure, unspecified (principal); I48.91 Unspecified atrial fibrillation; I08.2 Rheumatic disorders of both aortic and tricuspid valves
CPT/HCPCS: 93306

== ENCOUNTER → 2022-09-21 09:25 | Outpatient (BNVA) | payer MEDICARE, SELFPAY | PROVIDERS: PCP Family Medicine; Visit Provider Nurse Practitioner Family | DX: I10 Essential (primary) hypertension (principal); I48.11 Longstanding persistent atrial fibrillation; I43 Cardiomyopathy in diseases classified elsewhere; Z79.01 Long term (current) use of anticoagulants | CPT/HCPCS: 99214 ==

== ENCOUNTER → 2022-10-24 08:20 | Outpatient (BNVA) | payer MEDICARE, SELFPAY | PROVIDERS: PCP Family Medicine; Visit Provider Nurse Practitioner Family | DX: C44.619 Basal cell carcinoma of skin of left upper limb, including shoulder (principal); L57.0 Actinic keratosis; L57.8 Other skin changes due to chronic exposure to nonionizing radiation; L81.4 Other melanin hyperpigmentation; D22.5 Melanocytic nevi of trunk; L85.3 Xerosis cutis; Z86.007 Personal history of in-situ neoplasm of skin; Z71.89 Other specified counseling | CPT/HCPCS: 11102; 17000; 17003; 99213 ==

== ENCOUNTER → 2022-11-14 07:47 | Outpatient (BNVA) | payer MEDICARE, SELFPAY | PROVIDERS: PCP Family Medicine; Visit Provider Dermatology | DX: C44.519 Basal cell carcinoma of skin of other part of trunk (principal) | CPT/HCPCS: 11603; 12032 ==

== ENCOUNTER → 2022-11-25 08:01 | Outpatient (BNVA) | payer MEDICARE, SELFPAY | PROVIDERS: PCP Family Medicine; Visit Provider Dermatology | DX: Z48.02 Encounter for removal of sutures (principal) | CPT/HCPCS: 99024; 99212 ==

== ENCOUNTER → 2023-02-27 10:03 | Outpatient (BNVA) | payer MEDICARE, SELFPAY | PROVIDERS: PCP Family Medicine; Visit Provider Nurse Practitioner Family | DX: L57.8 Other skin changes due to chronic exposure to nonionizing radiation (principal); L81.4 Other melanin hyperpigmentation; D22.5 Melanocytic nevi of trunk; Z85.828 Personal history of other malignant neoplasm of skin; L57.0 Actinic keratosis | CPT/HCPCS: 17004; 99213 ==

== ENCOUNTER → 2023-03-29 11:03 | Outpatient (BNVA) | payer MEDICARE, SELFPAY | PROVIDERS: PCP Family Medicine; Visit Provider Internal Medicine Cardiovascular Disease | DX: I48.11 Longstanding persistent atrial fibrillation (principal); Z79.01 Long term (current) use of anticoagulants; G47.33 Obstructive sleep apnea (adult) (pediatric); I10 Essential (primary) hypertension; I43 Cardiomyopathy in diseases classified elsewhere | CPT/HCPCS: 99214 ==

== ENCOUNTER → 2023-06-28 07:59 | Outpatient (BNVA) | payer MEDICARE, SELFPAY | PROVIDERS: PCP Family Medicine; Visit Provider Nurse Practitioner Family | DX: L57.8 Other skin changes due to chronic exposure to nonionizing radiation (principal); L81.4 Other melanin hyperpigmentation; L57.0 Actinic keratosis; D22.5 Melanocytic nevi of trunk; Z85.828 Personal history of other malignant neoplasm of skin | CPT/HCPCS: 17004; 99213 ==

== ENCOUNTER → 2023-09-28 10:13 | Outpatient (BNVA) | payer MEDICARE, SELFPAY | PROVIDERS: PCP Family Medicine; Visit Provider Internal Medicine Cardiovascular Disease | DX: R07.9 Chest pain, unspecified (principal) | CPT/HCPCS: 93005 ==

== ENCOUNTER → 2023-12-29 07:59 | Outpatient (BNVA) | payer MEDICARE, SELFPAY | PROVIDERS: PCP Family Medicine; Visit Provider Nurse Practitioner Family | DX: L57.8 Other skin changes due to chronic exposure to nonionizing radiation (principal); L57.0 Actinic keratosis; D22.5 Melanocytic nevi of trunk | CPT/HCPCS: 17004; 99213 ==

== ENCOUNTER → 2024-04-08 09:46 | Outpatient (BNVA) | payer MEDICARE, SELFPAY | PROVIDERS: PCP Family Medicine; Visit Provider Internal Medicine Cardiovascular Disease | DX: I48.11 Longstanding persistent atrial fibrillation (principal); I10 Essential (primary) hypertension; I43 Cardiomyopathy in diseases classified elsewhere; G47.33 Obstructive sleep apnea (adult) (pediatric); Z87.891 Personal history of nicotine dependence; Z79.01 Long term (current) use of anticoagulants | CPT/HCPCS: 99214 ==

== ENCOUNTER → 2024-10-08 09:18 | Outpatient (BNVA) | payer MEDICARE, SELFPAY | PROVIDERS: PCP Family Medicine; Visit Provider Nurse Practitioner Family | DX: I48.11 Longstanding persistent atrial fibrillation (principal); Z79.01 Long term (current) use of anticoagulants; I43 Cardiomyopathy in diseases classified elsewhere; I10 Essential (primary) hypertension; G47.30 Sleep apnea, unspecified; Z87.891 Personal history of nicotine dependence | CPT/HCPCS: 93005; 99214 ==

== ENCOUNTER 2024-11-14 10:59 | Outpatient (CLI) | payer MEDICARE, SELFPAY ==
--- NOTE | 2024-11-14 11:15 | USCV_ITS ---
Norman Guaman Age: 79 Gender: M : 1945 Exam Date: 11/14/2024 11:21 Ordering Phys: Maria Esther Raman Technologist: JULIANA [place] [facility] [place]: afib BP: 122 / 73 HR: 60 Rhythm: Sinus Technical Quality: Adequate MEASUREMENTS (Male / Female) Normal Values 2D ECHO LV Diastolic Diameter PLAX 4.9 cm 4.2 - 5.9 / 3.9 - 5.3 cm IVS Diastolic Thickness 1.3 cm 0.6 - 1.0 / 0.6 - 0.9 cm IVS Systolic Thickness 1.6 cm LVPW Diastolic Thickness 1.3 cm 0.6 - 1.0 / 0.6 - 0.9 cm LVPW Systolic Thickness 2.4 cm LVOT Diameter 2.0 cm LV Ejection Fraction 2D Teich 51.6 % LV Ejection Fraction MOD 4C 51.8 % LV Ejection Fraction MOD 2C 54.2 % LV Ejection Fraction 2C AL 55.3 % LA Diameter 4.9 cm RA Systolic Volume 4C AL 72.3 ml RA Systolic Volume 4C MOD 74.8 ml LA Sys Volume AL 155.1 cm cubed LA Sys Volume Index AL 66.9 cm cubed/m squared Aorta at Sinotubular Diameter 2.8 cm M-MODE LA Ao Ratio MM 1.9 AV Cusp Separation MM 1.9 cm DOPPLER AV Peak Velocity 153.0 cm/s LVOT Peak Velocity 89.0 cm/s AV Area Cont Eq vti 2.0 cm squared AV Area Cont Eq pk 1.7 cm squared MV Peak Velocity 86.0 cm/s MV Area PHT 3.8 cm squared Mitral E to A Ratio 2.4 TR Peak Velocity 98.0 cm/s TR Peak Gradient 3.8 mmHg TV Peak E Velocity 98.0 cm/s PV Peak Velocity 101.0 cm/s FINDINGS Left Ventricle Moderately increased left ventricular cavity size. Moderately decreased left ventricular systolic function. Left ventricular ejection fraction is estimated at 45 %. Global left ventricular hypokinesis. Grade III/IV diastolic dysfunction (restrictive filling pattern), severely elevated filling pressures. Right Ventricle The right ventricle is normal in size and function. Right Atrium The right atrium is normal in size. Left Atrium Severely increased left atrial size. Mitral Valve Moderately thickened mitral valve. No mitral valve stenosis. Moderate mitral valve regurgitation. Aortic Valve Moderate aortic valve calcification. No aortic valve stenosis. Trace aortic valve regurgitation. Tricuspid Valve Structurally normal tricuspid valve without significant stenosis or regurgitation. Pulmonary artery systolic pressure is normal. Pulmonic Valve Structurally normal pulmonic valve without significant stenosis. There is no pulmonic regurgitation. Pericardium Normal pericardium without effusion. Aorta Normal ascending aorta dimension. IVC The inferior vena cava appears normal. CONCLUSIONS Moderately increased left ventricular cavity size. Moderately decreased left ventricular systolic function. Left ventricular ejection fraction is estimated at 45 %. Global left ventricular hypokinesis. Grade III/IV diastolic dysfunction (restrictive filling pattern), severely elevated filling pressures. Severely increased left atrial size. Moderately thickened mitral valve. No mitral valve stenosis. Moderate mitral valve regurgitation. Moderate aortic valve calcification. No aortic valve stenosis. Trace aortic valve regurgitation. There is no pericardial effusion. Right atrial pressure is around 10 mm of mercury. Mikel Perez MD (Electronically Signed) Final Date: 15 November 2024 22:29 S
== END 2024-11-14 11:00 | disposition home or self-care (01) ==
LOC: RAD 11:00
PROVIDERS: PCP Family Medicine; Visit Provider Nurse Practitioner Family
DX: I48.11 Longstanding persistent atrial fibrillation (principal); I43 Cardiomyopathy in diseases classified elsewhere; I51.89 Other ill-defined heart diseases; R93.1 Abnormal findings on diagnostic imaging of heart and coronary circulation; I51.7 Cardiomegaly; I34.0 Nonrheumatic mitral (valve) insufficiency; I35.8 Other nonrheumatic aortic valve disorders
CPT/HCPCS: 93306

== ENCOUNTER → 2025-01-01 08:08 | Outpatient (BNVA) | payer MEDICARE, SELFPAY | PROVIDERS: PCP Family Medicine; Visit Provider Nurse Practitioner Family | DX: L57.8 Other skin changes due to chronic exposure to nonionizing radiation (principal); L81.4 Other melanin hyperpigmentation; D22.39 Melanocytic nevi of other parts of face; L82.1 Other seborrheic keratosis; Z08 Encounter for follow-up examination after completed treatment for malignant neoplasm; Z85.828 Personal history of other malignant neoplasm of skin; L57.0 Actinic keratosis; D48.5 Neoplasm of uncertain behavior of skin | CPT/HCPCS: 11102; 17004; 69100; 99213 ==

== ENCOUNTER → 2025-02-04 08:00 | Outpatient (BNVA) | payer MEDICARE, SELFPAY | PROVIDERS: PCP Family Medicine; Visit Provider Dermatology | DX: C44.219 Basal cell carcinoma of skin of left ear and external auricular canal (principal); C44.41 Basal cell carcinoma of skin of scalp and neck | CPT/HCPCS: 13121; 15260; 17311 ==

== ENCOUNTER → 2025-02-20 11:12 | Outpatient (BNVA) | payer MEDICARE, SELFPAY | PROVIDERS: PCP Family Medicine; Visit Provider Dermatology | DX: Z48.817 Encounter for surgical aftercare following surgery on the skin and subcutaneous tissue (principal) | CPT/HCPCS: 99212 ==

== ENCOUNTER → 2025-03-06 11:59 | Outpatient (BNVA) | payer MEDICARE, SELFPAY | PROVIDERS: PCP Family Medicine; Visit Provider Dermatology | DX: Z48.817 Encounter for surgical aftercare following surgery on the skin and subcutaneous tissue (principal) | CPT/HCPCS: 99212 ==

== ENCOUNTER → 2025-04-03 10:17 | Outpatient (BNVA) | payer MEDICARE, SELFPAY | PROVIDERS: PCP Family Medicine; Visit Provider Internal Medicine Cardiovascular Disease | DX: I48.91 Unspecified atrial fibrillation (principal); Z79.01 Long term (current) use of anticoagulants; I43 Cardiomyopathy in diseases classified elsewhere; I10 Essential (primary) hypertension; G47.33 Obstructive sleep apnea (adult) (pediatric); Z99.89 Dependence on other enabling machines and devices; Z87.891 Personal history of nicotine dependence | CPT/HCPCS: 99214 ==